=== PATIENT | male | born 1995 | race Caucasian/White ===

== ENCOUNTER 2018-11-11 16:04 | Emergency (ER) | payer OTHER ==
[~2018-11-11] VITALS: Ht 162.6 cm; Wt 82.3 kg
[~2018-11-11 16:04] MED LIST: IBUP800T48 PO
[2018-11-11 16:11] VITALS: Ht 162.6 cm; Wt 82.3 kg
[2018-11-11] MEDS ORDERED: CEPH-443 PO (16:56)
[2018-11-11] MEDS ORDERED: CEPHALEXIN 500 MG CAP PO ONE (17:00)
[2018-11-11 17:55] VITALS: BP 135/77; PULSE 76; RESP 19
--- NOTE | 2018-11-11 20:25 | ERD ---
ER Documentation Chief Complaint Chief Complaint possible uti per pt, dysuria HPI This is a 23-year-old man with a history of spina bifida and neurogenic bladder requiring bladder catheterization daily presenting with concern for urinary tract infection. He states he has had dysuria and has had multiple prior UTIs and knows how they feel. He denies fevers or chills, no rash, no penile discharge, no vomiting or diarrhea. ROS All systems reviewed and are negative except as per history of present illness. Medications Home Meds Active Scripts Cephalexin* (Keflex*) 500 Mg Capsule, 500 MG PO QID for 10 Days, CAP Prov:OC DICKEY MD 11/11/18 Ibuprofen* (Motrin*) 800 Mg Tab, 800 MG PO Q6H PRN for PAIN AND OR ELEVATED TEMP, #30 TAB Prov:CAROLINA HUTCHINS MD 06/06/18 Allergies Allergies: Coded Allergies: phenytoin (Verified Allergy, Severe, RASH, 06/06/18) PER PT PMhx/Soc History of Surgery: Yes (SPINA BIFIDA SX) Anesthesia Reaction: No Hx Neurological Disorder: Yes (SPINA BIFIDA) Hx Respiratory Disorders: No Hx Cardiac Disorders: No Hx Psychiatric Problems: No Hx Miscellaneous Medical Probl: No Hx Alcohol Use: Yes Hx Substance Use: No Hx Tobacco Use: No Smoking Status: Never smoker Physical Exam Vitals Vital Signs Date Temp Pulse Resp B/P (MAP) Pulse Ox O2 O2 Flow FiO2 Time Delivery Rate 11/11/18 76 19 135/77 100 Room Air 17:55 (96) 11/11/18 98.5 102 18 154/91 99 16:11 (112) Physical Exam GENERAL: Well-developed, well-nourished, well-hydrated, in no apparent distress, looks nontoxic in appearance HEENT: Moist mucous membranes, pink conjunctiva, no cervical spine tenderness or step-off deformities, no goiter, no jaundice or icterus, extraocular movements intact without pain. No submandibular induration, and no pharyngeal erythema NEURO: Alert and oriented 3, cranial nerves II through XII intact bilaterally, pupils equal round reactive to light, no focal deficits or facial asymmetry, sensation intact distally Strength 5/5 in upper and lower extremities bilaterally CARDIAC: Regular rate and rhythm, no murmurs rubs or gallops LUNGS: Clear bilaterally no wheezing crackles or stridor ABDOMEN: Soft nontender, no guarding, no rigidity, no rebound, no psoas sign no obturator sign. Normoactive bowel sounds SKIN: Warm and dry to touch, no abrasions, contusions, or hematomas, no lacerations, no ecchymosis, no target lesions, and without ulcers EXTREMITIES: No clubbing cyanosis or edema, calves are bilaterally symmetrical, no Homans sign, no popliteal cord sign. Distal pulses equal and bilateral PSYCH: Normal affect without agitation or irritability Results 24 hrs Current Medications Medications Dose Sig/Kit Start Time Status Last (Trade) Ordered Route PRN Stop Time Admin Dose Reason Admin Cephalexin 500 mg ONCE ONCE 11/11/18 DC 11/11/18 (Keflex) PO 17:00 17:07 11/11/18 17:01 Procedures/MDM I administered ibuprofen 600 mg p.o. and cephalexin 500 mg p.o. for suspected urinary tract infection. Urine cultures have been ordered results are pending I will follow-up. Patient feels much better at this time, and vital signs are normal, symptoms have improved. I did give strict instructions to return to the ED if symptoms continue or worsen, patient will otherwise follow-up with primary care physicia n. Patient understood instructions and agreed to plan. Disclaimer: Inadvertent spelling and grammatical errors are likely due to EHR/dictation software use and do not reflect on the overall quality of patient care. Also, please note that the electronic time recorded on this note does not necessarily reflect the actual time of the patient encounter. Departure Diagnosis: Primary Impression: Neurogenic bladder Additional Impressions: Spina bifida Spinal region: unspecified Presence of hydrocephalus: without hydrocephalus Qualified Codes: Q05.9 - Spina bifida, unspecified Acute UTI Condition: Good Patient Instructions: Bladder Infection, Male (Adult) OC DICKEY MD Nov 11, 2018 20:25
== END 2018-11-11 17:56 | disposition home or self-care (01) ==
LOC: FTE 16:04
DX: N31.9 Neuromuscular dysfunction of bladder, unspecified (principal); Q05.9 Spina bifida, unspecified; N39.0 Urinary tract infection, site not specified
CPT/HCPCS: 87086; P9612; Z7502; Z7610; 99283